=== PATIENT | male | born 1970 | race Two or more races ===

== ENCOUNTER 2017-12-12 10:17 | Inpatient (IN) | payer OTHER ==
[2017-12-12 11:04] VITALS: BMI 18.1
--- NOTE | 2017-12-12 11:57 | HP ---
CIWA Score - CIWA Score Nausea/Vomitin-Mild Nausea/No Vomiting Muscle Tremors: 4-Moderate,w/Arms Extend Anxiety: 4-Mod. Anxious/Guarded Agitation: 1-Slight > Activity Paroxysmal Sweats: 1-Minimal Palms Moist Orientation: 1-Uncertain about Date Tacttile Disturbances: 1-Very Mild Itch/Numbness Auditory Disturbances: 1-Very Mild Visual Disturbances: 1-Very Mild Sensitivity Headache: 1-Very Mild CIWA-Ar Total Score: 16 Admission ROS S - HPI Chief Complaint: I want to stop drinking, I need help, I get too sick and shake too much, I can' t do it myself Allergies/Adverse Reactions: Allergies Allergy/AdvReac Type Severity Reaction Status Date / Time No Known Drug Allergies Allergy Verified 12/12/17 11:37 History of Present Illness: 47 yo gentleman here for detox from alcohol - first time here. Denies seizures , not sure about black outs. Exam Limitations: Clinical Condition - Ebola screening Have you traveled outside of the country in the last 21 days: No Have you had contact with anyone from an Ebola affected area: No Have you been sick,other than usual withdrawal symptoms: No - Review of Systems Constitutional: Loss of Appetite, Malaise, Changes in sleep, Weakness EENT: reports: No Symptoms Reported Respiratory: reports: No Symptoms reported Cardiac: reports: No Symptoms Reported GI: reports: Poor Appetite, Poor Fluid Intake, Abdominal cramping : reports: Frequency Musculoskeletal: reports: No Symptoms Reported Integumentary: reports: Dryness Neuro: reports: Headache, Tremors Endocrine: reports: No Symptoms Reported Hematology: reports: No Symptoms Reported Psychiatric: reports: Judgement Intact, Mood/Affect Appropiate, Anxious Other Systems: Reviewed and Negative Patient History - Patient Medical History Hx Asthma: No Hx Chronic Obstructive Pulmonary Disease (COPD): No Hx Cancer: No Hx Cardiac Disorders: No Hx Hypertension: No Hx Hypercholesterolemia: No Hx Pacemaker: No HX Cerebrovascular Accident: No Hx Seizures: No Hx Diabetes: No Hx Gastrointestinal Disorders: No Hx Liver Disease: No Hx Genitourinary Disorders: No Hx Sexually Transmitted Disorders: No Hx Renal Disease (ESRD): No Hx Thyroid Disease: No Hx Human Immunodeficiency Virus (HIV): No Hx Hepatitis C: No Hx Depression: Yes (no meds x 10 months since leaving long-term) Hx Suicide Attempt: Yes (OVERDOSE PILLS 2015) Hx Schizophrenia: Yes - Patient Surgical History Past Surgical History: Yes Hx Neurologic Surgery: No Hx Cataract Extraction: No Hx Cardiac Surgery: No Hx Lung Surgery: No Hx Breast Surgery: No Hx Breast Biopsy: No Hx Abdominal Surgery: No Hx Appendectomy: No Hx Cholecystectomy: No Hx Genitourinary Surgery: No Hx Section: No Other Surgical History: LEFT ORBITAL BONE FX Anesthesia Reaction: No - PPD History Previous Implant?: Yes Documented Results: Negative w/o proof Implanted On Prior [facility] Admission?: No PPD to be Administered?: Yes - Reproductive History Patient is a Female of Child Bearing Age (11 -55 yrs old): No (male) - Smoking Cessation Smoking history: Current every day smoker Have you smoked in the past 12 months: No Aproximately how many cigarettes per day: 8 Hx Chewing Tobacco Use: No Initiated information on smoking cessation: Yes 'Breaking Loose' booklet given: 12/12/17 (give on floor) - Substance & Tx. History Hx Alcohol Use: Yes Hx Substance Use: Yes Substance Use Type: Alcohol, Cocaine Hx Substance Use Treatment: Yes (detox) - Substances Abused Crack Route: Smoking Frequency: Daily Amount used: 5 BAGS Age of first use: 31 Date of Last Use: 12/11/17 Alcohol Route: Oral Frequency: Daily Amount used: BEER- ten 24 oz CANS Age of first use: 18 Date of Last Use: 12/12/17 Family Disease History - Family Disease History Family Disease History: [place]: Father (, ), Mother (), Other: Father, Mother, Brother (4 - living ), Sister (4 - living - ) Admission Physical Exam S - Vital Signs Vital Signs: Vital Signs - 24 hr 12/12/17 11:02 Temperature 96.9 F L Pulse Rate 88 Respiratory 20 Rate Blood Pressure 135/71 - Physical General Appearance: Yes: Nourished, Appropriately Dressed, Moderate Distress, Tremorous, Anxious HEENTM: Yes: Hearing grossly Normal, Normocephalic, Normal Voice, Pharynx Normal Respiratory: Yes: Normal Breath Sounds, No Respiratory Distress Neck: Yes: No masses,lesions,Nodules, Supple Breast: Yes: Breast Exam Deferred Cardiology: Yes: Regular Rhythm, Regular Rate Abdominal: Yes: Flat, Soft Genitourinary: Yes: Frequency Back: Yes: Normal Inspection Musculoskeletal: Yes: full range of Motion, Gait Steady Extremities: Yes: Normal Inspection, Normal Range of Motion, Non-Tender Neurological: Yes: Alert, Motor Strength 5/5, Normal Mood/Affect, Normal Response Integumentary: Yes: Normal Color, Dry, Warm Lymphatic: Yes: Within Normal Limits - Diagnostic (1) Alcohol dependence with uncomplicated withdrawal Current Visit: Yes Status: Acute (2) Crack cocaine use Current Visit: Yes Status: Acute (3) Nicotine dependence Current Visit: Yes Status: Acute Qualifiers: Nicotine product type: cigarettes Substance use status: uncomplicated Qualified Code(s): F17.210 - Nicotine dependence, cigarettes, uncomplicated (4) Underweight Current Visit: Yes Status: Chronic Cleared for Admission [facility] - Detox or Rehab [facility] Level of Care: Medically Managed Detox Regimen/Protocol: Librium [facility] Breath Alcohol Content Breath Alcohol Content: 0.033 Urine Drug Screen - Results Drug Screen Negative: No Urine Drug Screen Results: KAYODE-Cocaine
[2017-12-12] MEDS ORDERED: MAG HYDROX/AL HYDROX/SIMETH 30 ML UNIT-DOSE CUP PO PRN (12:04)
[2017-12-12] MEDS ORDERED: MAGNESIUM HYDROX 2400MG/30ML ORAL SUSPENSION 30 ML CUP PO PRN (12:04)
[2017-12-12] MEDS ORDERED: hydrOXYzine PAMOATE 25 MG CAPSULE (FP) PO PRN (12:04)
[2017-12-12] MEDS ORDERED: IBUPROFEN 400 MG TABLET (FP) PO PRN (12:04)
[2017-12-12] MEDS ORDERED: MENTHOL/PHENOL 1 EACH UD MM PRN (12:04)
[2017-12-12] MEDS ORDERED: guaiFENesin/D-METHORPHAN HB 10 ML UNIT-DOSE CUPS PO PRN (12:04)
[2017-12-12] MEDS ORDERED: NICOTINE POLACRILEX 2 MG GUM BUC PRN (12:04)
[2017-12-12] MEDS ORDERED: ACETAMINOPHEN 325 MG TABLET (FP) PO PRN (12:04)
[2017-12-12] MEDS ORDERED: chlordiazePOXIDE HCL 25 MG CAPSULE PO PRN (12:04)
[2017-12-12] MEDS ORDERED: MAGNESIUM CITRATE 300 ML BOTTLE PO PRN (12:04)
[2017-12-12] MEDS ORDERED: LOPERAMIDE HCL 2 MG CAPSULE PO PRN (12:04)
[2017-12-12] MEDS ORDERED: P-EPHED 60MG/TRIPROLIDI 2.5MG TABLET PO PRN (12:04)
[2017-12-12] MEDS ORDERED: chlordiazePOXIDE HCL 25 MG CAPSULE PO ONE (14:00)
[2017-12-12] MEDS: chlordiazePOXIDE HCL 25 MG CAPSULE PO SCH ×2 (17:41→23:14)
[2017-12-12] MEDS ORDERED: MELATONIN 5 MG TABLETS PO PRN (22:00)
[2017-12-12 22:14] LABS: URINE APPEARANCE CLEAR; URINE BILIRUBIN NEGATIVE (<2.0 mg/dL); URINE COLOR COLORLESS; URINE GLUCOSE (UA) NEGATIVE (NEGATIVE); URINE KETONE NEGATIVE (NEGATIVE); URINE LEUK ESTERASE NEGATIVE (NEGATIVE); URINE NITRITE NEGATIVE (NEGATIVE); URINE PROTEIN NEGATIVE (NEGATIVE); URINE UROBILINOGEN NEGATIVE mg/dL (0.2-1.0)
[2017-12-12] MEDS: THIAMINE HCL 100 MG TABLET (FP) PO SCH (23:14)
[2017-12-13] MEDS: chlordiazePOXIDE HCL 25 MG CAPSULE PO SCH ×4 (05:39→22:47)
--- NOTE | 2017-12-13 08:12 | CONSULT ---
[facility] Psychiatric Consult - Data Date of interview: 12/13/17 Identifying data: Mr Silke Pritchett is a 47 years old single male, unemployed on food stamp, homeless seeking detox treatment for alcohol and cocaine Substance Abuse History: Reports history of alcohol and cocaine use. Refer to addiction counselor's summary for further information Medical History: Significant for history of surgery for fracture of left orbital bone. Smokes 8 cigarettes daily Psychiatric History: Patient is lao speaking. Reports that he was diagnosed with Schizophrenia in 2008 and has had 5 previous psychiatric admissions to hospitals in [facility]. He is known to [facility] where he was hospitalized twice. Reports chronic non adherence to OPD care and medications. Told chief writer that he last took medications approximately 8 months ago and he is willing to take them now. Reports that he was on Zyprexa 5 mg po daily and Trazadone 50 mg po HS. Reports one previous suicidal attempt by overdose in 2016. At present, reports feeling depressed and sleeping poorly Physical/Sexual Abuse/Trauma History: Denies history of emotional, physical or sexual abuse as well as DV relationship Additional Comment: Reports history of 3 previous misdemeaor arrests for for fighting and stealing Mental Status Exam - Mental Status Exam Alert and Oriented to: Time, Place, Person Cognitive Function: Fair Patient Appearance: Well Groomed Mood: Depressed Affect: Appropriate Speech Pattern: Clear Voice Loudness: Normal Thought Process: Intact, Goal Oriented Thought Disorder: Not Present Hallucinations: Denies Suicidal Ideation: Denies Homicidal Ideation: Denies Insight/Judgement: Fair Sleep: Poorly Appetite: Good Muscle strength/Tone: Normal Gait/Station: Normal Psychiatric Findings - Problem List ([place] 1, 2,3) (1) Alcohol dependence with uncomplicated withdrawal Current Visit: Yes Status: Acute (2) Cocaine dependence Current Visit: Yes Status: Acute (3) Nicotine dependence Current Visit: Yes Status: Chronic Qualifiers: Nicotine product type: cigarettes Substance use status: uncomplicated Qualified Code(s): F17.210 - Nicotine dependence, cigarettes, uncomplicated (4) Schizophrenia Current Visit: Yes Status: Chronic (5) Substance induced mood disorder Current Visit: Yes Status: Acute (6) Substance-induced sleep disorder Current Visit: Yes Status: Acute - Initial Treatment Plan Initial Treatment Plan: 1) Start Zyprexa 5 mg po daily and Trazadone 50 mg po HS. 2) Continue inpatient detoxification
[2017-12-13 10:12] LABS: HEMATOCRIT 39.9 % (35.4-49); HEMOGLOBIN 13.2 GM/dL (11.7-16.9); MCH 30.7 pg (25.7-33.7); MEAN CELL VOLUME 92.9 fl (80-96); MEAN PLT VOLUME 10.5 fl (7.5-11.1); PLATELET COUNT 163 K/MM3 (134-434); RDW 15.4 % (11.9-15.9); WHITE BLOOD COUNT 4.6 K/mm3 (4.0-10.0)
[2017-12-13 10:25] LABS: ALBUMIN 3.2 g/dl (3.4-5.0); ALK PHOS 67 U/L (45-117); ANION GAP 7 (8-16); BILIRUBIN,TOTAL 0.4 mg/dL (0.2-1.0); BLOOD UREA NITROGEN 14 mg/dL (7-18); CALCIUM 8.7 mg/dL (8.5-10.1); CHLORIDE 112 mmol/L (98-107); CO2 28 mmol/L (21-32); CREATININE 0.7 mg/dL (0.7-1.3); GLUCOSE,RANDOM 113 mg/dL (74-106); POTASSIUM 3.9 mmol/L (3.5-5.1); SGOT/AST 31 U/L (15-37); SGPT/ALT 31 U/L (12-78); SODIUM 147 mmol/L (136-145)
[2017-12-13] MEDS: PRENATAL VITAMINS W/ FOLIC ACID TABLET (FP) PO SCH (10:48)
[2017-12-13] MEDS: OLANZapine 5 MG TABLET PO SCH (12:00)
--- NOTE | 2017-12-13 13:27 | PN ---
[facility] CIWA - CIWA Score Nausea/Vomitin-Mild Nausea/No Vomiting Muscle Tremors: 4-Moderate,w/Arms Extend Anxiety: 4-Mod. Anxious/Guarded Agitation: 4-Moderately Restless Paroxysmal Sweats: 1-Minimal Palms Moist Orientation: 0-Oriented Tacttile Disturbances: 1-Very Mild Itch/Numbness Auditory Disturbances: 0-None Visual Disturbances: 0-None Headache: 0-None Present CIWA-Ar Total Score: 15 BHS Progress Note (SOAP) Subjective: sweat tremor restlessness trouble concentration low energy Objective: 12/13/17 13:26 Vital Signs Temperature 97.8 F 12/13/17 09:16 Pulse Rate 79 12/13/17 09:16 Respiratory Rate 18 12/13/17 09:16 Blood Pressure 96/56 12/13/17 09:16 O2 Sat by Pulse Oximetry (%) Laboratory Last Values WBC 4.6 K/mm3 (4.0-10.0) 12/13/17 07:20 RBC 4.30 M/mm3 (4.00-5.60) 12/13/17 07:20 Hgb 13.2 GM/dL (11.7-16.9) 12/13/17 07:20 Hct 39.9 % (35.4-49) 12/13/17 07:20 MCV 92.9 fl (80-96) 12/13/17 07:20 MCH 30.7 pg (25.7-33.7) 12/13/17 07:20 MCHC 33.0 g/dl (32.0-35.9) 12/13/17 07:20 RDW 15.4 % (11.9-15.9) 12/13/17 07:20 Plt Count 163 K/MM3 (134-434) 12/13/17 07:20 MPV 10.5 fl (7.5-11.1) 12/13/17 07:20 Sodium 147 mmol/L (136-145) H 12/13/17 07:20 Potassium 3.9 mmol/L (3.5-5.1) 12/13/17 07:20 Chloride 112 mmol/L (98-107) H 12/13/17 07:20 Carbon Dioxide 28 mmol/L (21-32) 12/13/17 07:20 Anion Gap 7 (8-16) L 12/13/17 07:20 BUN 14 mg/dL (7-18) 12/13/17 07:20 Creatinine 0.7 mg/dL (0.7-1.3) 12/13/17 07:20 Creat Clearance w eGFR > 60 (>60) 12/13/17 07:20 Random Glucose 113 mg/dL (74-106) H 12/13/17 07:20 Calcium 8.7 mg/dL (8.5-10.1) 12/13/17 07:20 Total Bilirubin 0.4 mg/dL (0.2-1.0) 12/13/17 07:20 AST 31 U/L (15-37) 12/13/17 07:20 ALT 31 U/L (12-78) 12/13/17 07:20 Alkaline Phosphatase 67 U/L (45-117) 12/13/17 07:20 Total Protein 6.0 g/dl (6.4-8.2) L 12/13/17 07:20 Albumin 3.2 g/dl (3.4-5.0) L 12/13/17 07:20 Urine Color Colorless 12/12/17 14:56 Urine Appearance Clear 12/12/17 14:56 Urine pH 6.0 (5.0-8.0) 12/12/17 14:56 Ur Specific [place] 1.003 (1.001-1.035) 12/12/17 14:56 Urine Protein Negative (NEGATIVE) 12/12/17 14:56 Urine Glucose (UA) Negative (NEGATIVE) 12/12/17 14:56 Urine Ketones Negative (NEGATIVE) 12/12/17 14:56 Urine Blood Negative (NEGATIVE) 12/12/17 14:56 Urine Nitrite Negative (NEGATIVE) 12/12/17 14:56 Urine Bilirubin Negative (<2.0 mg/dL) 12/12/17 14:56 Urine Urobilinogen Negative mg/dL (0.2-1.0) 12/12/17 14:56 Ur Leukocyte Esterase Negative (NEGATIVE) 12/12/17 14:56 RPR Titer Nonreactive (NONREACTIVE) 12/13/17 07:20 lab noted Assessment: 12/13/17 13:27 withdrawal sx Plan: continue detox
--- NOTE | 2017-12-13 14:18 | EKG ---
Test Reason : Blood Pressure : / mmHG Vent. Rate : 077 BPM Atrial Rate : 077 BPM P-R Int : 138 ms QRS Dur : 104 ms QT Int : 422 ms P-R-T Axes : 083 080 080 degrees QTc Int : 477 ms SINUS RHYTHM WITH PREMATURE SUPRAVENTRICULAR COMPLEXES INCOMPLETE RIGHT BUNDLE BRANCH BLOCK BORDERLINE ECG NO PREVIOUS ECGS AVAILABLE Confirmed by James May ([id number]) on 12/13/2017 2:18:43 PM Referred By: Salvador Ruiz Confirmed By:James May
[2017-12-13] MEDS: THIAMINE HCL 100 MG TABLET (FP) PO SCH (22:47)
[2017-12-13] MEDS: traZODone HCL 50 MG TABLET (FP) PO SCH (22:47)
[2017-12-14] MEDS: chlordiazePOXIDE HCL 25 MG CAPSULE PO SCH ×2 (06:00→10:09)
[2017-12-14] MEDS: OLANZapine 5 MG TABLET PO SCH (10:09)
[2017-12-14] MEDS: PRENATAL VITAMINS W/ FOLIC ACID TABLET (FP) PO SCH (10:09)
--- NOTE | 2017-12-14 10:47 | PN ---
S CIWA - CIWA Score Nausea/Vomitin Muscle Tremors: 3 Anxiety: 3 Agitation: 2 Paroxysmal Sweats: 1-Minimal Palms Moist Orientation: 0-Oriented Tacttile Disturbances: 1-Very Mild Itch/Numbness Auditory Disturbances: 1-Very Mild Visual Disturbances: 0-None Headache: 2-Mild CIWA-Ar Total Score: 16 BHS Progress Note (SOAP) Subjective: alert,irritable,anxious,interrupted sleep,tremor Objective: 12/14/17 10:46 Vital Signs Temperature 97.2 F L 12/14/17 10:03 Pulse Rate 72 12/14/17 10:03 Respiratory Rate 18 12/14/17 10:03 Blood Pressure 115/75 12/14/17 10:03 O2 Sat by Pulse Oximetry (%) Laboratory Last Values WBC 4.6 K/mm3 (4.0-10.0) 12/13/17 07:20 RBC 4.30 M/mm3 (4.00-5.60) 12/13/17 07:20 Hgb 13.2 GM/dL (11.7-16.9) 12/13/17 07:20 Hct 39.9 % (35.4-49) 12/13/17 07:20 MCV 92.9 fl (80-96) 12/13/17 07:20 MCH 30.7 pg (25.7-33.7) 12/13/17 07:20 MCHC 33.0 g/dl (32.0-35.9) 12/13/17 07:20 RDW 15.4 % (11.9-15.9) 12/13/17 07:20 Plt Count 163 K/MM3 (134-434) 12/13/17 07:20 MPV 10.5 fl (7.5-11.1) 12/13/17 07:20 Sodium 147 mmol/L (136-145) H 12/13/17 07:20 Potassium 3.9 mmol/L (3.5-5.1) 12/13/17 07:20 Chloride 112 mmol/L (98-107) H 12/13/17 07:20 Carbon Dioxide 28 mmol/L (21-32) 12/13/17 07:20 Anion Gap 7 (8-16) L 12/13/17 07:20 BUN 14 mg/dL (7-18) 12/13/17 07:20 Creatinine 0.7 mg/dL (0.7-1.3) 12/13/17 07:20 Creat Clearance w eGFR > 60 (>60) 12/13/17 07:20 Random Glucose 113 mg/dL (74-106) H 12/13/17 07:20 Calcium 8.7 mg/dL (8.5-10.1) 12/13/17 07:20 Total Bilirubin 0.4 mg/dL (0.2-1.0) 12/13/17 07:20 AST 31 U/L (15-37) 12/13/17 07:20 ALT 31 U/L (12-78) 12/13/17 07:20 Alkaline Phosphatase 67 U/L (45-117) 12/13/17 07:20 Total Protein 6.0 g/dl (6.4-8.2) L 12/13/17 07:20 Albumin 3.2 g/dl (3.4-5.0) L 12/13/17 07:20 Urine Color Colorless 12/12/17 14:56 Urine Appearance Clear 12/12/17 14:56 Urine pH 6.0 (5.0-8.0) 12/12/17 14:56 Ur Specific [place] 1.003 (1.001-1.035) 12/12/17 14:56 Urine Protein Negative (NEGATIVE) 12/12/17 14:56 Urine Glucose (UA) Negative (NEGATIVE) 12/12/17 14:56 Urine Ketones Negative (NEGATIVE) 12/12/17 14:56 Urine Blood Negative (NEGATIVE) 12/12/17 14:56 Urine Nitrite Negative (NEGATIVE) 12/12/17 14:56 Urine Bilirubin Negative (<2.0 mg/dL) 12/12/17 14:56 Urine Urobilinogen Negative mg/dL (0.2-1.0) 12/12/17 14:56 Ur Leukocyte Esterase Negative (NEGATIVE) 12/12/17 14:56 RPR Titer Nonreactive (NONREACTIVE) 12/13/17 07:20 Assessment: 12/14/17 10:46 withdrawal symptom Plan: continue detox
[2017-12-14] MEDS: chlordiazePOXIDE 5 MG CAPSULE PO SCH ×2 (17:54→22:18)
[2017-12-14] MEDS: traZODone HCL 50 MG TABLET (FP) PO SCH (22:18)
[2017-12-14] MEDS: THIAMINE HCL 100 MG TABLET (FP) PO SCH (22:19)
[2017-12-15] MEDS: chlordiazePOXIDE 5 MG CAPSULE PO SCH ×2 (06:30→10:39)
[2017-12-15] MEDS: PRENATAL VITAMINS W/ FOLIC ACID TABLET (FP) PO SCH (10:39)
[2017-12-15] MEDS: OLANZapine 5 MG TABLET PO SCH (10:39)
--- NOTE | 2017-12-15 11:23 | PN ---
S Progress Note (SOAP) Subjective: alert,irritable,anxious,interrupted sleep Objective: 12/15/17 11:22 Vital Signs Temperature 98.3 F 12/15/17 09:12 Pulse Rate 81 12/15/17 09:12 Respiratory Rate 19 12/15/17 09:12 Blood Pressure 124/74 12/15/17 09:12 O2 Sat by Pulse Oximetry (%) Assessment: 12/15/17 11:23 withdrawal symptom Plan: continue detox,discharge in am
[2017-12-15] MEDS: chlordiazePOXIDE HCL 10 MG CAPSULE PO SCH ×2 (17:09→22:15)
[2017-12-15] MEDS: THIAMINE HCL 100 MG TABLET (FP) PO SCH (22:15)
[2017-12-15] MEDS: traZODone HCL 50 MG TABLET (FP) PO SCH (22:15)
[2017-12-16] MEDS: chlordiazePOXIDE HCL 10 MG CAPSULE PO SCH ×2 (05:57→10:06)
[2017-12-16 07:36] VITALS: TEMP 97.9
[2017-12-16 09:14] VITALS: BP 133/74; PULSE 105
--- NOTE | 2017-12-16 09:36 | PN ---
BHS Progress Note (SOAP) Subjective: ALERT,NO COMPLAINT Objective: 12/16/17 09:34 Vital Signs Temperature 97.9 F 12/16/17 09:13 Pulse Rate 105 H 12/16/17 09:13 Respiratory Rate 18 12/16/17 09:13 Blood Pressure 133/74 12/16/17 09:13 O2 Sat by Pulse Oximetry (%) DETOX COMPLETED,NO WITHDRAWAL SYMPTOM Assessment: 12/16/17 09:35 NO WITHDRAWAL SYMPTOM Plan: DISCHARGE TODAY,FOLLOW UP WITH AFTER CARE PROGRAM ARRANGEMENT
--- NOTE | 2017-12-16 09:41 | DS ---
[facility] Detox Discharge Summary Admission Date: 12/12/17 Discharge Date: 12/16/17 - History Present History: Alcohol Dependence, Cocaine Dependence Pertinent Past History: FOLLOW UP WITH AFTER CARE PROGRAM ARRANGEMENT - Physical Exam Results Vital Signs: Vital Signs Temperature 97.9 F 12/16/17 09:13 Pulse Rate 105 H 12/16/17 09:13 Respiratory Rate 18 12/16/17 09:13 Blood Pressure 133/74 12/16/17 09:13 O2 Sat by Pulse Oximetry (%) Pertinent Admission Physical Exam Findings: WITHDRAWAL SIGNS AND SYMPTOM Laboratory Last Values WBC 4.6 K/mm3 (4.0-10.0) 12/13/17 07:20 RBC 4.30 M/mm3 (4.00-5.60) 12/13/17 07:20 Hgb 13.2 GM/dL (11.7-16.9) 12/13/17 07:20 Hct 39.9 % (35.4-49) 12/13/17 07:20 MCV 92.9 fl (80-96) 12/13/17 07:20 MCH 30.7 pg (25.7-33.7) 12/13/17 07:20 MCHC 33.0 g/dl (32.0-35.9) 12/13/17 07:20 RDW 15.4 % (11.9-15.9) 12/13/17 07:20 Plt Count 163 K/MM3 (134-434) 12/13/17 07:20 MPV 10.5 fl (7.5-11.1) 12/13/17 07:20 Sodium 147 mmol/L (136-145) H 12/13/17 07:20 Potassium 3.9 mmol/L (3.5-5.1) 12/13/17 07:20 Chloride 112 mmol/L (98-107) H 12/13/17 07:20 Carbon Dioxide 28 mmol/L (21-32) 12/13/17 07:20 Anion Gap 7 (8-16) L 12/13/17 07:20 BUN 14 mg/dL (7-18) 12/13/17 07:20 Creatinine 0.7 mg/dL (0.7-1.3) 12/13/17 07:20 Creat Clearance w eGFR > 60 (>60) 12/13/17 07:20 Random Glucose 113 mg/dL (74-106) H 12/13/17 07:20 Calcium 8.7 mg/dL (8.5-10.1) 12/13/17 07:20 Total Bilirubin 0.4 mg/dL (0.2-1.0) 12/13/17 07:20 AST 31 U/L (15-37) 12/13/17 07:20 ALT 31 U/L (12-78) 12/13/17 07:20 Alkaline Phosphatase 67 U/L (45-117) 12/13/17 07:20 Total Protein 6.0 g/dl (6.4-8.2) L 12/13/17 07:20 Albumin 3.2 g/dl (3.4-5.0) L 12/13/17 07:20 Urine Color Colorless 12/12/17 14:56 Urine Appearance Clear 12/12/17 14:56 Urine pH 6.0 (5.0-8.0) 12/12/17 14:56 Ur Specific [place] 1.003 (1.001-1.035) 12/12/17 14:56 Urine Protein Negative (NEGATIVE) 12/12/17 14:56 Urine Glucose (UA) Negative (NEGATIVE) 12/12/17 14:56 Urine Ketones Negative (NEGATIVE) 12/12/17 14:56 Urine Blood Negative (NEGATIVE) 12/12/17 14:56 Urine Nitrite Negative (NEGATIVE) 12/12/17 14:56 Urine Bilirubin Negative (<2.0 mg/dL) 12/12/17 14:56 Urine Urobilinogen Negative mg/dL (0.2-1.0) 12/12/17 14:56 Ur Leukocyte Esterase Negative (NEGATIVE) 12/12/17 14:56 RPR Titer Nonreactive (NONREACTIVE) 12/13/17 07:20 Vital Signs Temperature 97.9 F 12/16/17 09:13 Pulse Rate 105 H 12/16/17 09:13 Respiratory Rate 18 12/16/17 09:13 Blood Pressure 133/74 12/16/17 09:13 O2 Sat by Pulse Oximetry (%) - Treatment Hospital Course: Detox Protocol Followed, Detoxed Safely, Responded well, Discharged Condition Good, Rehab Referral Accepted Patient has Accepted a Rehab Referral to: [facility] - Medication Discharge Medications: Ambulatory Orders Olanzapine [Zyprexa -] 5 mg PO DAILY 12/12/17 Trazodone HCl 50 mg PO HS 12/12/17 Zolpidem Tartrate [Ambien] 10 mg PO HS 12/12/17 Olanzapine [Zyprexa -] 5 mg PO DAILY #30 tablet 12/13/17 traZODone HCL [Desyrel -] 50 mg PO HS #30 tablet 12/13/17 - Diagnosis (1) Alcohol dependence with uncomplicated withdrawal Current Visit: Yes Status: Acute (2) Cocaine dependence Current Visit: Yes Status: Acute (3) Nicotine dependence Current Visit: Yes Status: Chronic Qualifiers: Nicotine product type: cigarettes Substance use status: uncomplicated Qualified Code(s): F17.210 - Nicotine dependence, cigarettes, uncomplicated (4) Schizophrenia Current Visit: Yes Status: Chronic - AMA Did Patient Leave Against Medical Advice: No
[2017-12-16] MEDS: OLANZapine 5 MG TABLET PO SCH (10:06)
[2017-12-16] MEDS: PRENATAL VITAMINS W/ FOLIC ACID TABLET (FP) PO SCH (10:06)
== END 2017-12-16 09:30 | disposition home or self-care (01) | DRG 774 ==
LOC: YASAS 10:17 → Y6N 13:11
PROVIDERS: ADMIT Surgery; ATTEND Surgery
PROC: HZ2ZZZZ Detoxification Services for Substance Abuse Treatment (ICD-10-PCS; principal; 2017-12-12)
DX: F10.230 Alcohol dependence with withdrawal, uncomplicated (principal); F14.20 Cocaine dependence, uncomplicated; F17.210 Nicotine dependence, cigarettes, uncomplicated; F32.9 Major depressive disorder, single episode, unspecified; F19.24 Other psychoactive substance dependence with psychoactive substance-induced mood disorder; F19.282 Other psychoactive substance dependence with psychoactive substance-induced sleep disorder; F20.9 Schizophrenia, unspecified; R63.6 Underweight; Z68.1 Body mass index [BMI] 19.9 or less, adult; Z91.5 Personal history of self-harm
CPT/HCPCS: 36415; 80053; 81003; 85027; 86593; 93005; 93010

== ENCOUNTER 2021-08-06 12:52 | Inpatient (IN) | payer OTHER ==
[2021-08-06] MEDS ORDERED: chlordiazePOXIDE HCL 25 MG CAPSULE PO PRN (17:45)
[2021-08-06] MEDS ORDERED: BISMUTH SUBSALICYLATE 524 MG/30 ML PO PRN (17:45)
[2021-08-06] MEDS ORDERED: MAGNESIUM CITRATE 300 ML BOTTLE PO PRN (17:45)
[2021-08-06] MEDS ORDERED: LOPERAMIDE HCL 2 MG CAPSULE PO PRN (17:45)
[2021-08-06] MEDS ORDERED: IBUPROFEN 400 MG TABLET (FP) PO PRN (17:45)
[2021-08-06] MEDS ORDERED: ACETAMINOPHEN 325 MG TABLET (FP) PO PRN ×2 (17:45)
[2021-08-06] MEDS ORDERED: MENTHOL/PHENOL 1 EACH UD MM PRN (17:45)
[2021-08-06] MEDS ORDERED: MAGNESIUM HYDROX 2400MG/30ML ORAL SUSPENSION 30 ML CUP PO PRN (17:45)
[2021-08-06] MEDS ORDERED: ONDANSETRON *ODT* 4 MG TABLET SL PRN (17:45)
[2021-08-06] MEDS ORDERED: MAG HYDROX/AL HYDROX/SIMETH 30 ML UNIT-DOSE CUP PO PRN (17:45)
[2021-08-06] MEDS ORDERED: NICOTINE 10 MG CARTRIDGE (INHALER) IH PRN (17:45)
[2021-08-06 18:16] VITALS: BMI 19.8
[2021-08-06] MEDS: METHOCARBAMOL 500 MG TABLET PO PRN (19:29)
[2021-08-06] MEDS: hydrOXYzine PAMOATE 25 MG CAPSULE (FP) PO SCH ×2 (19:29→22:20)
[2021-08-06] MEDS: THIAMINE HCL 100 MG TABLET (FP) PO SCH (22:20)
[2021-08-06] MEDS: chlordiazePOXIDE HCL 25 MG CAPSULE PO SCH (22:21)
[2021-08-06] MEDS: MELATONIN 5 MG TABLETS PO SCH (22:21)
[2021-08-07] MEDS: chlordiazePOXIDE HCL 25 MG CAPSULE PO SCH ×4 (07:22→22:38)
[2021-08-07] MEDS: hydrOXYzine PAMOATE 25 MG CAPSULE (FP) PO SCH ×5 (07:24→22:38)
[2021-08-07 10:54] LABS: HEMATOCRIT 36.1 % (35.4-49); HEMOGLOBIN 12.3 GM/dL (11.7-16.9); MCH 33.1 pg (25.7-33.7); MCHC 34.2 g/dl (32.0-35.9); MEAN CELL VOLUME 96.7 fl (80-96); MEAN PLT VOLUME 10.5 fl (7.5-11.1); PLATELET COUNT 179 10^3/uL (134-434); RBC 3.73 M/mm3 (4.00-5.60); RDW 14.6 % (11.9-15.9); WHITE BLOOD COUNT 4.2 K/mm3 (4.0-10.0)
[2021-08-07 11:02] LABS: ALBUMIN 3.5 g/dl (3.4-5.0); CALCIUM 9.3 mg/dL (8.5-10.1)
[2021-08-07 11:03] LABS: BLOOD UREA NITROGEN 6.4 mg/dL (7-18)
[2021-08-07 11:05] LABS: CREATININE 0.7 mg/dL (0.55-1.3)
[2021-08-07 11:07] LABS: BILIRUBIN,TOTAL 0.7 mg/dL (0.2-1); TOT PROT 6.4 g/dl (6.4-8.2)
[2021-08-07] MEDS: PRENATAL VITAMINS W/ FOLIC ACID TABLET (FP) PO SCH (11:19)
[2021-08-07] MEDS ORDERED: chlordiazePOXIDE HCL 10 MG CAPSULE PO PRN (14:36)
[2021-08-07] MEDS: MELATONIN 5 MG TABLETS PO SCH (22:38)
[2021-08-07] MEDS: THIAMINE HCL 100 MG TABLET (FP) PO SCH (22:38)
[2021-08-08] MEDS ORDERED: chlordiazePOXIDE HCL 25 MG CAPSULE PO SCH (05:00)
[2021-08-08] MEDS: chlordiazePOXIDE HCL 10 MG CAPSULE PO SCH ×4 (06:09→22:29)
[2021-08-08] MEDS: hydrOXYzine PAMOATE 25 MG CAPSULE (FP) PO SCH ×5 (06:10→22:30)
[2021-08-08] MEDS: PRENATAL VITAMINS W/ FOLIC ACID TABLET (FP) PO SCH (15:29)
[2021-08-08] MEDS: THIAMINE HCL 100 MG TABLET (FP) PO SCH (22:30)
[2021-08-08] MEDS: MELATONIN 5 MG TABLETS PO SCH (22:30)
[2021-08-09] MEDS ORDERED: chlordiazePOXIDE HCL 10 MG CAPSULE PO PRN
[2021-08-09] MEDS ORDERED: chlordiazePOXIDE HCL 10 MG CAPSULE PO SCH (05:00)
[2021-08-09] MEDS: hydrOXYzine PAMOATE 25 MG CAPSULE (FP) PO SCH ×4 (05:51→22:12)
[2021-08-09] MEDS: chlordiazePOXIDE HCL 10 MG CAPSULE PO SCH ×4 (05:51→22:12)
[2021-08-09] MEDS: PRENATAL VITAMINS W/ FOLIC ACID TABLET (FP) PO SCH (10:52)
[2021-08-09] MEDS: METHOCARBAMOL 500 MG TABLET PO PRN (10:52)
[2021-08-09 14:08] LABS: SARS-CoV-2 NAA Not Detected (Not Detected)
[2021-08-09] MEDS: THIAMINE HCL 100 MG TABLET (FP) PO SCH (22:11)
[2021-08-09] MEDS: MELATONIN 5 MG TABLETS PO SCH (22:12)
[2021-08-10] MEDS: hydrOXYzine PAMOATE 25 MG CAPSULE (FP) PO SCH ×6 (00:12→23:26)
[2021-08-10] MEDS: chlordiazePOXIDE HCL 10 MG CAPSULE PO SCH ×2 (06:02→17:47)
[2021-08-10] MEDS: PRENATAL VITAMINS W/ FOLIC ACID TABLET (FP) PO SCH (11:15)
[2021-08-10] MEDS: MELATONIN 5 MG TABLETS PO SCH (23:26)
[2021-08-10] MEDS: THIAMINE HCL 100 MG TABLET (FP) PO SCH (23:26)
[2021-08-11] MEDS ORDERED: chlordiazePOXIDE HCL 10 MG CAPSULE PO ONE (05:00)
[2021-08-11 07:24] VITALS: BP 90/60; PULSE 67; TEMP 96.6
[2021-08-11] MEDS: hydrOXYzine PAMOATE 25 MG CAPSULE (FP) PO SCH ×2 (07:25→11:00)
[2021-08-11] MEDS: PRENATAL VITAMINS W/ FOLIC ACID TABLET (FP) PO SCH (11:00)
== END 2021-08-11 11:13 | disposition home or self-care (01) | DRG 774 ==
LOC: YASAS 12:52 → Y6N 19:01
PROVIDERS: ADMIT Allergy & Immunology; ATTEND Allergy & Immunology
PROC: HZ2ZZZZ Detoxification Services for Substance Abuse Treatment (ICD-10-PCS; principal; 2021-08-06)
DX: F10.230 Alcohol dependence with withdrawal, uncomplicated (principal); F14.20 Cocaine dependence, uncomplicated; F17.210 Nicotine dependence, cigarettes, uncomplicated; F20.9 Schizophrenia, unspecified; R63.6 Underweight; Z68.1 Body mass index [BMI] 19.9 or less, adult; Z86.11 Personal history of tuberculosis
CPT/HCPCS: 36415; 71045-TC-FY; 80053; 85027; 86780; C9803; U0003; U0005